=== PATIENT | male | born 1935 | race Asian ===

== ENCOUNTER 2020-01-02 20:32 | Inpatient (IN) | payer OTHER, SELFPAY ==
[~2020-01-02] VITALS: Ht 175.3 cm; Wt 63.0 kg
--- NOTE | 2020-01-02 20:32 | NUR ---
PT LEXI ALS. TAKEN TO BED 10
[2020-01-02 20:44] VITALS: BP 126/83
--- NOTE | 2020-01-02 20:45 | NUR ---
84 y/o male biba from psychiatric for c/o fever and decreased oxygen saturation. skin hot, diaphoretic. Temperature 103.4F O2 85% on 15 non rebreather mask. GCS 7. lungs sounds rhonchi. sinus tachycardiac on monitor. L wrist iv 20g, intact, patent, good blood return. skin intact. generalized weakness. no edma noted. cap refill <3 seconds. patient positioned for comfort, hob elevated, bedrails up x2, bed down, ermd made aware. aware of pt status. pmhx: cerebral infacrtion(r side), htn, hld, dementia, osteoporosis nka Addendum: 01/02/20 at 2214 by [email or web address] COVID POSITIVE
--- NOTE | 2020-01-02 20:54 | NUR ---
Carlos lyle in [facility] - 01/02/20 at 2108 by MICHAEL X-Ray at bedside.
[2020-01-02 20:58] VITALS: BP 121/76
[2020-01-02 21:22] LABS: APPEARANCE,URINE SL CLOUDY (CLEAR); BILIRUBIN,URINE 1+ (NEGATIVE); BLOOD, URINE 2+ (NEGATIVE); COLOR,URINE DARK YELLOW (YELLOW); LEUKOCYTE ESTERASE ,URINE NEGATIVE (NEGATIVE); NITRITE, URINE NEGATIVE (NEGATIVE); UGLUCOSE NEGATIVE (NEGATIVE)
[2020-01-02 21:28] LABS: PROTHROMBIN TIME 10.3 secs (10.8-13.4)
[2020-01-02 21:30] LABS: ALBUMIN 3.3 g/dL (3.4-5.0); ANION GAP 18.8 (8-16); ASPARTATE AMINOTRANSFERASE 64 U/L (15-37); CARBON DIOXIDE 25.1 mmol/L (21-32); CHLORIDE 110 mmol/L (98-107); CREATININE 1.5 mg/dL (0.6-1.3); GLUCOSE 180 mg/dL (74-106); POTASSIUM 3.9 mmol/L (3.5-5.1); SODIUM SERUM 150 mmol/L (136-145); TOTAL BILIRUBIN 0.6 mg/dL (0.0-1.0); UREA NITROGEN, BLOOD 37 mg/dL (7-18)
[2020-01-02 21:38] LABS: RSV NEGATIVE (NEGATIVE)
[2020-01-02 21:38] LABS: BASOPHILS % (AUTO) 0.1 % (0.0-2.0); HEMATOCRIT 52.4 % (36-52); LYMPHOCYTES # (AUTO) 0.6 K/uL (2.0-11.5); LYMPHOCYTES % (AUTO) 8.8 % (20.5-51.1); MEAN CORPUSCULAR HEMOGLOBIN 31 pg (27-31); MEAN CORPUSCULAR HGB CONC 33 g/dL (33-37); MEAN CORPUSCULAR VOLUME 96.3 fL (80-94); MONOCYTES # (AUTO) 0.6 K/uL (0.8-1.0); MONOCYTES % (AUTO) 9.2 % (1.7-9.3); NEUTROPHILS # (AUTO) 5.4 K/uL (1.8-7.7); NEUTROPHILS % (AUTO) 81.9 % (42.2-75.2); PLATELET COUNT (AUTO) 201 K/uL (140-450); RED BLOOD CELL COUNT(AUTO) 5.44 MIL/uL (4.20-6.10); RED CELL DISTRIBUTION WIDTH 14.4 % (11.6-13.7); WHITE BLOOD COUNT (AUTO) 6.6 K/uL (4.8-10.8)
[2020-01-02 21:39] LABS: C-REACTIVE PROTEIN QUANT 11.3 mg/dL (0.0-0.9)
[2020-01-02] MEDS ORDERED: ATOR10TA PO (21:43)
[2020-01-02] MEDS ORDERED: ASPI-1822 PO (21:43)
[2020-01-02] MEDS ORDERED: AMLO5TAB PO (21:43)
[2020-01-02] MEDS ORDERED: MULT267T PO (21:43)
[2020-01-02] MEDS ORDERED: ZINC220T4 PO (21:43)
[2020-01-02] MEDS ORDERED: VITA-16 PO (21:43)
[2020-01-02] MEDS ORDERED: OMEG1CAP26 PO (21:43)
[2020-01-02] MEDS ORDERED: NUTR887L4 PO (21:43)
[2020-01-02] MEDS ORDERED: [UNRECOGNIZED DRUG - CODE] PO (21:43)
[2020-01-02] MEDS ORDERED: NACL 0.9% 2,000 ML IV ONE (21:45)
[2020-01-02] MEDS ORDERED: PIPERACILLIN/TAZOBACTAM 3.375 GM in DEXTROSE 5% 50 ML IV ONE (21:45)
[2020-01-02] MEDS ORDERED: PIPERACILLIN/TAZOBACTAM 3.375 GM VIAL IV ONE (21:49)
[2020-01-02 22:05] LABS: CREATINE KINASE MB 0.2 ng/mL (0-3.6)
[2020-01-02] MEDS ORDERED: ZOLPIDEM 5 MG TAB PO PRN (22:10)
[2020-01-02] MEDS ORDERED: ACETAMINOPHEN 325 MG TAB PO PRN (22:10)
[2020-01-02] MEDS ORDERED: POTASSIUM CHLORIDE 40 MEQ, LIDOCAINE MPF 1% 25 MG in NACL 0.9% 250 ML IV PRN (22:10)
[2020-01-02] MEDS ORDERED: HYDROcodone/APAP 7.5/325 MG 1 TAB PO PRN (22:10)
[2020-01-02] MEDS ORDERED: DOCUSATE SODIUM 100 MG GELCAP PO PRN (22:10)
[2020-01-02] MEDS ORDERED: guaiFENesin DM 200/20 MG-10 ML 10 ML UDC PO PRN (22:10)
[2020-01-02] MEDS ORDERED: ONDANSETRON 4 MG/2 ML VIAL IM/IVP PRN (22:10)
[2020-01-02 22:12] LABS: URINE AMORPHOUS URATE 2+ /HPF (None Seen)
[2020-01-02 22:13] LABS: COARSE GRANULAR CASTS,URINE 0-10 /LPF (None Seen)
[2020-01-02] MEDS ORDERED: ALBUTEROL HFA MDI 90 MCG/ACTUATION 8 GM INH PRN (22:20)
[2020-01-02] MEDS ORDERED: ALBUTEROL SULFATE/IPRATROPIU 3 ML SOL IH PRN (22:20)
--- NOTE | 2020-01-02 22:30 | NUR ---
COVID AND BEATRIZ SWABS DONE AND SENT TO LAB
--- NOTE | 2020-01-02 22:50 | NUR ---
Patient will be admitted to care of JES CHING. Admited to TELEMETRY. Will go to room 118. Belongings list completed. Report to REMIGIO PHILLIPS.
[2020-01-02 22:51] LABS: CHOL/HDL RATIO 4.1 (1-4.5); FREE T4 (FREE THYROXINE) 1.16 ng/dL (0.76-1.46); MAGNESIUM 2.3 mg/dL (1.8-2.4); THYROID STIMULATING HORMONE 0.39 uIU/mL (0.34-3.74)
[2020-01-02] MEDS: DEXT 5% /NACL 0.9% 1,000 ML IV SCH (23:00)
--- NOTE | 2020-01-02 23:00 | NUR ---
PT ADMITTED TO THE UNIT FOR ED. PATIENT AWAKE BUT LETHARGIC. PT UNABLE TO VERBALIZE UNDERSTANDING OR MAKE NEEDS KNOWN. PT ON 15L O2 VIA NRB O2 SAT 93% AT THIS TIME. NO SOB OR S/S OF DISTRESS NOTED. PT PLACED ON TELE MONITORING. BED LOWERED WITH CALL LIGHT WITHIN REACH
--- NOTE | 2020-01-02 23:19 | NUR ---
PT TAKEN OFF BIPAP AND PLACED ON 100% NRB. VITAL SIGNS STABLE. NO RESPIRATORY DISTRESS NOTED. JACQUELINE FABIAN AT BEDSIDE. WILL CONT TO MONITOR
[2020-01-03 00:08] VITALS: BP 127/80
--- NOTE | 2020-01-03 00:49 | NUR ---
INFORMED DR SHORE ABOUT REPEAT LACTIC ACID OF 4.2. NO NEW ORDERS AT THIS TIME
[2020-01-03] MEDS: ALBUTEROL SULFATE/IPRATROPIU 3 ML SOL IH SCH ×4 (01:00→19:00)
--- NOTE | 2020-01-03 02:49 | NUR ---
PT ASLEEP IN BED. NO S/S OF DISTRESS NOTED AT THIS TIME
[2020-01-03 04:10] VITALS: BP 121/71
[2020-01-03] MEDS ORDERED: PIPERACILLIN/TAZOBACTAM 3.375 GM VIAL IV ONE (05:21)
[2020-01-03] MEDS: PIPERACILLIN/TAZOBACTAM 3.375 GM in DEXTROSE 5% 50 ML IV SCH ×3 (05:53→21:13)
--- NOTE | 2020-01-03 05:57 | NUR ---
ORAL CARE DONE. PT TURNED AND REPOSITIONED FOR COMFORT
--- NOTE | 2020-01-03 06:55 | NUR ---
PATIENT HAS BEEN SCREENED AND CATEGORIZED HIGH NUTRITION RISK. PATIENT WILL BE SEEN WITHIN 1-2 DAYS OF ADMISSION. 01/04/20-01/06/08 JESSE HUMPHRIES MS, RDN
[2020-01-03 07:28] LABS: ALBUMIN 2.5 g/dL (3.4-5.0); ANION GAP 12.9 (8-16); ASPARTATE AMINOTRANSFERASE 65 U/L (15-37); CARBON DIOXIDE 24.8 mmol/L (21-32); CHLORIDE 116 mmol/L (98-107); CREATININE 1.4 mg/dL (0.6-1.3); GLUCOSE 228 mg/dL (74-106); POTASSIUM 3.7 mmol/L (3.5-5.1); SODIUM SERUM 150 mmol/L (136-145); TOTAL BILIRUBIN 0.6 mg/dL (0.0-1.0); UREA NITROGEN, BLOOD 28 mg/dL (7-18)
[2020-01-03 07:31] LABS: HEMATOCRIT 48.3 % (36-52); HEMOGLOBIN 15.7 g/dL (12.0-18.0); MEAN CORPUSCULAR HEMOGLOBIN 31 pg (27-31); MEAN CORPUSCULAR HGB CONC 33 g/dL (33-37); MEAN CORPUSCULAR VOLUME 96.2 fL (80-94); PLATELET COUNT (AUTO) 176 K/uL (140-450); RED BLOOD CELL COUNT(AUTO) 5.02 MIL/uL (4.20-6.10); RED CELL DISTRIBUTION WIDTH 14.6 % (11.6-13.7); WHITE BLOOD COUNT (AUTO) 7.2 K/uL (4.8-10.8)
--- NOTE | 2020-01-03 07:33 | NUR ---
PT REPORT GIVEN TO AM NURSE. PT ENDORSED IN STABLE CONDITION
--- NOTE | 2020-01-03 07:34 | NUR ---
RECEIVED REPORT FROM FACILITY MECHANIC NURSE. PATIENT LYING DOWN IN BED SLEEPING, LETHARGIC, WITHDRAWS TO PAIN. RESPIRATIONS EVEN, DIMINISHED, ON NON-BREATHER WITH O2 SAT AT 99%, WILL TITRATE OXYGEN DOWN. NOTIFIED RT, RT TO COME SEE PATIENT. SKIN COLOR APPROPRIATE TO ETHNICITY, WARM TO TOUCH. SKIN INTACT. IV SITES INTACT, PATENT, AND INFUSING IVF PER MD ORDERS. REVIEWED PLAN OF CARE WITH PATIENT. REINFORCEMENT NEEDED. SAFETY MEASURES IN PLACE, CALL LIGHT WITHIN REACH. WILL CONTINUE TO MONITOR.
--- NOTE | 2020-01-03 07:48 | NUR ---
SATURATION 100% ON SUPPLEMENTAL OXYGEN AT 15 LPM VIA NON REBREATHER POST HHN THERAPY TITRATED OXYGEN DEVICE TO A PARTIAL REBREATHER NNAMDI/RN NOTIFIED BIPAP TO MASK AT BEDSIDE
[2020-01-03 07:57] LABS: LYMPHOCYTES % (MANUAL) 8 % (20-46); MONOCYTES % (MANUAL) 5 % (5-12)
[2020-01-03 08:00] VITALS: BP 135/66
[2020-01-03] MEDS: DEXT 5% /NACL 0.9% 1,000 ML IV SCH ×3 (08:50→22:44)
[2020-01-03] MEDS: DEXAMETHASONE 4 MG TAB PO SCH (08:58)
[2020-01-03] MEDS: ASCORBIC ACID 500 MG TAB PO SCH (08:58)
[2020-01-03] MEDS: PANTOPRAZOLE 40 MG TABEC PO SCH (08:58)
[2020-01-03] MEDS: ZINC SULF 220 MG CAP PO SCH (08:58)
--- NOTE | 2020-01-03 08:58 | NUR ---
PATIENT LYING DOWN IN BED, LETHARGIC, UNABLE TO FOLLOW COMMANDS, WITHDRAWS TO PAIN. SCHEDULED HEPARIN SUBQ GIVEN. ORAL MEDICATIONS NOT GIVEN AT THIS TIME DUE TO PATIENT LETHARGIC. WILL CONTINUE TO MONITOR.
[2020-01-03] MEDS ORDERED: HEPARIN PER PHARMACY MC PRN (09:50)
[2020-01-03] MEDS ORDERED: hePARIN / DEXT 5% PREMIX 250 ML IV SCH (09:50)
[2020-01-03] MEDS: hePARIN / DEXT 5% PREMIX 250 ML IV SCH ×2 (10:58→21:33)
--- NOTE | 2020-01-03 11:00 | NUR ---
HEPARIN DRIP STARTED PER PROTOCOL. WILL CONTINUE TO MONITOR.
[2020-01-03 12:00] VITALS: BP 130/67
--- NOTE | 2020-01-03 13:11 | NUR ---
SCHEDULED MEDICATIONS DUE GIVEN. WILL CONTINUE TO MONITOR.
--- NOTE | 2020-01-03 13:53 | NUR ---
SATURATION 99% ON SUPPLEMENTAL OXYGEN AT 15 LPM VIA PARTIAL REBREATHER POST HHN THERAPY TITRATED OXYGEN DEVICE TO AN OXYMIZER AT 4 LPM SATURATION 97% AFTER 2 MINUTES GANG LEADER TO MONITOR NNAMDI/JACQUELINE NOTIFIED
--- NOTE | 2020-01-03 14:25 | NUR ---
ASSISTED BAG BUILDER IN CLEANING AND REPOSITIONING PATIENT. NO BM YET FOR CDIFF COLLECTION. WILL CONTINUE TO MONITOR.
[2020-01-03 16:00] VITALS: BP 108/54
--- NOTE | 2020-01-03 18:45 | NUR ---
PTT>150. PER HEP DRIP PROTOCOL HOLD FOR 1 HOUR THEN REDUCE BY 200 UNITS/HR. STARTED HOLDING AT THIS TIME. WILL NOTIFY PM SHIFT.
--- NOTE | 2020-01-03 19:27 | NUR ---
GAVE REPORT TO STONE GRADER NURSE FOR CONTINUITY OF CARE. PATIENT IN STABLE CONDITION.
--- NOTE | 2020-01-03 19:30 | NUR ---
RECEIVED BEDSIDE REPORT FROM AM SHIFT RN FOR PT'S CONTINUITY OF CARE. PT IS ASLEEP WITH NO SIGNS OF DISTRESS. PT IS ON MEDICAL INSURANCE CODER, ON 4L O2 VIA OXYMIZER, HAS RIGHT WRIST 20G INFUSING WITH D5 NS AT 100ML/HR AND LEFT WRIST 20G WILL BE INFUSING WITH HEPARIN AT 600U/HR. SAFETY MEASURES IN PLACE, BED IN LOW POSITION, AND CALL LIGHT IS WITHIN REACH. WILL MONITOR PT THROUGHOUT THE SHIFT.
[2020-01-03 20:00] VITALS: BP 106/54
--- NOTE | 2020-01-03 21:15 | NUR ---
ADMINISTERED SCHEDULED MEDICATIONS ORDERED. SPOKE WITH FAMILY MEMBERS ASKING FOR UPDATE, DISCUSSED PLAN OF CARE FOR TONIGHT, FAMILY MEMBERS SUGGESTED TO FEED PT APPLESAUCE. ATTEMPTED TO FEED PT WITH APPLESAUCE, PT UNABLE TO SWALLOW. PT NON-VERBAL BUT PER FAMILY, PT ABLE TO TALK AND ANSWER QUESTIONS HIS BASELINE. WILL CONTINUE TO MONITOR PT.
[2020-01-04] VITALS: BP 107/50
--- NOTE | 2020-01-04 | NUR ---
PT ASLEEP WITH NO SIGNS OF DISTRESS OR DISCOMFORT. TITRATED O2 DOWN TO 3L, PT SATURATING AT 98%. WILL CONTINUE TO MONITOR PT.
[2020-01-04] MEDS: ALBUTEROL SULFATE/IPRATROPIU 3 ML SOL IH SCH ×4 (01:00→19:00)
--- NOTE | 2020-01-04 01:34 | NUR ---
NO TX GIVEN DUE TO COVID PROCEDURE
[2020-01-04] MEDS: HYDRAGUARD CREAM TP SCH ×2 (01:55→13:53)
--- NOTE | 2020-01-04 02:30 | NUR ---
PT ASLEEP WITH NO SIGNS OF DISTRESS. NOTED SOME MUCOUS/SALIVA ON MOUTH, SUCTIONED PT AND PERFORMED ORAL CARE. PT TOLERATED THE ACTIVITY WELL. WILL CONTINUE TO MONITOR THE PT.
[2020-01-04 03:53] LABS: BASOPHILS % (AUTO) 0.1 % (0.0-2.0); HEMATOCRIT 42.6 % (36-52); HEMOGLOBIN 13.7 g/dL (12.0-18.0); LYMPHOCYTES # (AUTO) 0.5 K/uL (2.0-11.5); LYMPHOCYTES % (AUTO) 6.1 % (20.5-51.1); MEAN CORPUSCULAR HEMOGLOBIN 31 pg (27-31); MEAN CORPUSCULAR HGB CONC 32 g/dL (33-37); MEAN CORPUSCULAR VOLUME 96.5 fL (80-94); MONOCYTES # (AUTO) 0.4 K/uL (0.8-1.0); MONOCYTES % (AUTO) 5.1 % (1.7-9.3); NEUTROPHILS # (AUTO) 7.5 K/uL (1.8-7.7); NEUTROPHILS % (AUTO) 88.7 % (42.2-75.2); PLATELET COUNT (AUTO) 146 K/uL (140-450); RED BLOOD CELL COUNT(AUTO) 4.41 MIL/uL (4.20-6.10); RED CELL DISTRIBUTION WIDTH 14.6 % (11.6-13.7); WHITE BLOOD COUNT (AUTO) 8.4 K/uL (4.8-10.8)
[2020-01-04 04:00] VITALS: BP 107/55
[2020-01-04] MEDS: PIPERACILLIN/TAZOBACTAM 3.375 GM in DEXTROSE 5% 50 ML IV SCH ×3 (04:15→21:19)
[2020-01-04 04:19] LABS: ALBUMIN 2.1 g/dL (3.4-5.0); ANION GAP 10.4 (8-16); ASPARTATE AMINOTRANSFERASE 37 U/L (15-37); CHLORIDE 119 mmol/L (98-107); CREATININE 1.2 mg/dL (0.6-1.3); GLUCOSE 140 mg/dL (74-106); POTASSIUM 3.4 mmol/L (3.5-5.1); SODIUM SERUM 154 mmol/L (136-145); TOTAL BILIRUBIN 0.5 mg/dL (0.0-1.0); UREA NITROGEN, BLOOD 22 mg/dL (7-18)
--- NOTE | 2020-01-04 04:30 | NUR ---
VITAL SIGNS CHECKED AND CHARTED. PT CHANGED AND REPOSITIONED. PT TOLERATED ACTIVITY WELL. TITRATED O2 DOWN TO 2L, PT SATURATING AT 96%. WILL CONTINUE TO MONITOR PT.
--- NOTE | 2020-01-04 05:25 | NUR ---
RECEIVED CALL FROM LAB, PTT VALUE >150. WILL PAUSE HEPARIN DRIP FOR AN HOUR AND REDUCE BY 200UNITS/HR UPON RESTART, PER PROTOCOL.
--- NOTE | 2020-01-04 06:29 | NUR ---
REPEAT CXR DONE AT BEDSIDE. REPLACED AND RELOCATED O2 SAT SENSOR, REPLACED OXYMIZER WITH NC AT 2L O2, HEPARIN DRIP RESTARTED AT 400UNITS/HR, WILL REORDER PTT REDRAW FOR 1230.
[2020-01-04] MEDS: hePARIN / DEXT 5% PREMIX 250 ML IV SCH ×3 (06:40→22:54)
--- NOTE | 2020-01-04 06:42 | NUR ---
PT O2 SATURATION AT 92% VIA 2L NC. ORDERED PTT AND MUSIC BOX MECHANIC AWARE. PT ASLEEP WITH NO SIGNS OF DISTRESS. WILL ENDORSE TO AM SHIFT RN FOR PT'S CONTINUITY OF CARE.
--- NOTE | 2020-01-04 07:15 | NUR ---
RECEIVED REPORT FROM RECORDS MANAGEMENT TECHNICIAN NURSE RUBIO FOR CONTINUITY OF CARE. PATIENT IN STABLE CONDITION. RESPIRATIONS EVEN AND UNLABORED, 2L VIA NC. IV INTACT AND PATENT. SAFETY MEASURES IN PLACE. BED IN LOW POSITION. BED ALARM ON. CALL LIGHT WITHIN REACH. WILL CONTINUE TO MONITOR.
--- NOTE | 2020-01-04 07:59 | NUR ---
RECEIVED ON SUPPLEMENTAL OXYGENT AT 2 LPM VIA NC BIPAP TO MASK AT BEDSIDE
[2020-01-04 08:00] VITALS: BP 145/69
[2020-01-04] MEDS: ZINC SULF 220 MG CAP PO SCH ×2 (09:49→21:19)
[2020-01-04] MEDS: PANTOPRAZOLE 40 MG TABEC PO SCH (09:49)
[2020-01-04] MEDS: DEXAMETHASONE 4 MG TAB PO SCH (09:50)
[2020-01-04] MEDS: ASCORBIC ACID 500 MG TAB PO SCH (09:50)
[2020-01-04] MEDS: NACL 0.45% 1,000 ML IV SCH (09:51)
--- NOTE | 2020-01-04 10:30 | NUR ---
CHANGED LINEN AT THIS TIME. NO BOWEL MOVEMENT AT THIS TIME. PATIENT TOLERATED WELL. RESPIRATIONS EVEN AND UNLABORED. BED IN LOW POSITION. BED ALARM ON. CALL LIGHT WITHIN REACH. WILL CONTINUE TO MONITOR.
[2020-01-04] MEDS ORDERED: CRUSHER, PILL MC ONE (10:49)
[2020-01-04 12:00] VITALS: BP 110/54
--- NOTE | 2020-01-04 13:30 | NUR ---
HOLD HEPARIN DUE TO APTT 86.6. PATIENT IN STABLE CONDITION. NO BLEEDING NOTED.
[2020-01-04] MEDS ORDERED: ALBUTEROL HFA MDI 90 MCG/ACTUATION 8 GM INH PRN (14:20)
--- NOTE | 2020-01-04 15:00 | NUR ---
RESUMED HEPARIN DRIP AT THIS TIME. PATIENT IN STABLE CONDITION. NO BLEEDING NOTED AT THIS TIME.
[2020-01-04 16:00] VITALS: BP 106/52
[2020-01-04 16:51] LABS: ANION GAP 16.7 (8-16); CARBON DIOXIDE 23.3 mmol/L (21-32); CHLORIDE 118 mmol/L (98-107); GLUCOSE 118 mg/dL (74-106); SODIUM SERUM 155 mmol/L (136-145); UREA NITROGEN, BLOOD 22 mg/dL (7-18)
[2020-01-04] MEDS ORDERED: KCL 20 MEQ/WATER INJ PREMIX 200 ML IV SCH (17:50)
--- NOTE | 2020-01-04 19:19 | NUR ---
GAVE REPORT TO INSPECTOR SCALES NURSE AT THIS TIME. PATIENT IN STABLE CONDITION. ENDORSED ORDER FOR PATIENT K 4OMEQ POTASSIUM PER DR. STODDARD. PHARMACY VERIFIED K 20MEQ. NIGHT NURSE NEEDS TO ORDER ANOTHER K 20 MEQ.
--- NOTE | 2020-01-04 19:20 | NUR ---
RECEIVED PATIENT IN STABLE CONDITION FROM AM SHIFT NURSE FOR CONTINUITY OF CARE. TELE PATIENT. RESPIRATIONS EVEN, UNLABORED. CONTINUES ON O2 2L VIA NC, O2SAT 96%. SKIN WARM, DRY. IV SITE NOTED TO RIGHT WRIST 20G PATENT/INTACT, INFUSING FLUIDS WELL. IV SITE NOTED TO LEFT [id number] PATENT/INTACT, INFUSING HEPARIN WELL. NO C/O PAIN. NO S/S ACUTE DISTRESS. ABDOMEN SOFT, NONTENDER, NONDISTENDED. BOWEL SOUNDS ACTIVE X4 QUADRANTS. INCONTINENT OF BOWEL/BLADDER. PLAN OF CARE DISCUSSED WITH PATIENT AND FAMILY. CALL LIGHT WITHIN REACH. SAFETY PRECAUTIONS IN PLACE. ISOLATION PRECAUTIONS OBSERVED BY ALL STAFF.
[2020-01-04 20:00] VITALS: BP 115/61
--- NOTE | 2020-01-04 21:30 | NUR ---
REPOSITIONED PATIENT FOR COMFORT AND TO MAINTAIN SKIN INTEGRITY. DUE MEDS GIVEN. CALL LIGHT WITHIN REACH. SAFETY PRECAUTIONS IN PLACE. ISOLATION PRECAUTIONS OBSERVED BY ALL STAFF.
--- NOTE | 2020-01-04 23:00 | NUR ---
LAB RESULTS FOR APTT OF 44.9 RECEIVED. ADJUSTED HEPARIN PER PROTOCOL.
[2020-01-05] VITALS: BP 154/67
[2020-01-05] MEDS: ALBUTEROL SULFATE/IPRATROPIU 3 ML SOL IH SCH ×3 (01:00→13:00)
[2020-01-05] MEDS: HYDRAGUARD CREAM TP SCH ×2 (01:54→13:08)
--- NOTE | 2020-01-05 01:54 | NUR ---
PATIENT IS ASLEEP. NO S/S ACUTE DISTRESS. CALL LIGHT WITHIN REACH. SAFETY PRECAUTIONS IN PLACE. ISOLATION PRECAUTIONS OBSERVED BY ALL STAFF.
[2020-01-05] MEDS: NACL 0.45% 1,000 ML IV SCH ×3 (02:47→23:00)
--- NOTE | 2020-01-05 03:45 | NUR ---
PATIENT RESTING COMFORTABLY IN BED. FLACC 0. NO S/S ACUTE DISTRESS. CALL LIGHT WITHIN REACH. SAFETY PRECAUTIONS IN PLACE. ISOLATION PRECAUTIONS OBSERVED BY ALL STAFF.
[2020-01-05 04:00] VITALS: BP 152/75
[2020-01-05] MEDS: PIPERACILLIN/TAZOBACTAM 3.375 GM in DEXTROSE 5% 50 ML IV SCH ×3 (04:11→21:17)
[2020-01-05 05:10] LABS: BASOPHILS % (AUTO) 0.5 % (0.0-2.0); EOSINOPHILS # (AUTO) 0.1 K/uL (0-0.4); EOSINOPHILS % (AUTO) 0.8 % (0.0-4.0); HEMATOCRIT 41.4 % (36-52); HEMOGLOBIN 13.4 g/dL (12.0-18.0); LYMPHOCYTES # (AUTO) 0.2 K/uL (2.0-11.5); LYMPHOCYTES % (AUTO) 2.7 % (20.5-51.1); MEAN CORPUSCULAR HEMOGLOBIN 31 pg (27-31); MEAN CORPUSCULAR HGB CONC 33 g/dL (33-37); MEAN CORPUSCULAR VOLUME 95.3 fL (80-94); MONOCYTES # (AUTO) 0.2 K/uL (0.8-1.0); MONOCYTES % (AUTO) 2.6 % (1.7-9.3); NEUTROPHILS # (AUTO) 8.4 K/uL (1.8-7.7); NEUTROPHILS % (AUTO) 93.4 % (42.2-75.2); PLATELET COUNT (AUTO) 173 K/uL (140-450); RED BLOOD CELL COUNT(AUTO) 4.34 MIL/uL (4.20-6.10); RED CELL DISTRIBUTION WIDTH 14.4 % (11.6-13.7)
--- NOTE | 2020-01-05 05:21 | NUR ---
INCONTINENT CARE RENDERED WITH POLICY LOAN CALCULATOR AT BEDSIDE. DUE MEDS GIVEN. FLACC 0. NO S/S ACUTE DISTRESS. CALL LIGHT WITHIN REACH. SAFETY PRECAUTIONS IN PLACE. ISOLATION PRECAUTIONS OBSERVED BY ALL STAFF.
[2020-01-05 05:38] LABS: MAGNESIUM 2.3 mg/dL (1.8-2.4); PHOSPHORUS 1.7 mg/dL (2.5-4.9)
[2020-01-05 05:41] LABS: ALBUMIN 2.1 g/dL (3.4-5.0); ANION GAP 12.3 (8-16); ASPARTATE AMINOTRANSFERASE 79 U/L (15-37); CHLORIDE 119 mmol/L (98-107); GLUCOSE 119 mg/dL (74-106); POTASSIUM 3.3 mmol/L (3.5-5.1); SODIUM SERUM 153 mmol/L (136-145); TOTAL BILIRUBIN 0.7 mg/dL (0.0-1.0); UREA NITROGEN, BLOOD 22 mg/dL (7-18)
--- NOTE | 2020-01-05 05:46 | NUR ---
LAB RESULTS FOR APTT OF 63.3 RECEIVED. PER PROTOCOL, NO CHANGE. PATIENT IS RESTING COMFORTABLY. NO S/S BLEEDING NOTED. CALL LIGHT WITHIN REACH. SAFETY PRECAUTIONS IN PLACE. ISOLATION PRECAUTIONS OBSERVED BY ALL STAFF.
[2020-01-05] MEDS ORDERED: KCL 20 MEQ/WATER INJ PREMIX 100 ML IV ONE (06:12)
--- NOTE | 2020-01-05 06:12 | NUR ---
ADMINISTERED POTASSIUM 20MEQ TO COMPLETE ORDER OF POTASSIUM 40MEQ, INFUSING AT 10 ML/HR. VERIFIED WITH CHARGE NURSE YELENA. PATIENT IS AWAKE. FLACC 0. NO S/S ACUTE DISTRESS. CALL LIGHT WITHIN REACH. SAFETY PRECAUTIONS IN PLACE. ISOLATION PRECAUTIONS OBSERVED BY ALL STAFF.
--- NOTE | 2020-01-05 07:25 | NUR ---
RECEIVED PATIENT FROM NIGHT NURSE. PATIENT IN BED AWAKE. RESP EVEN AND UNLABORED ON 2LNC. NO NOTED DISTRESS AT THIS TIME. FLACC-0. HEPARIN CONTINUOUS DRIP NOTED AT 400UNITS/HR, 1/2 NS 60ML/HR ALSO NOTED. SAFETY MEASURES IN PLACE. CALL LIGHT WITHIN REACH. WILL CONTINUE TO MONITOR.
[2020-01-05 08:00] VITALS: BP 134/64
[2020-01-05] MEDS ORDERED: ASCORBIC ACID 500 MG TAB PO SCH (09:00)
[2020-01-05 09:06] LABS: T4 (THYROXINE) 7.3 ug/dL (4.5-12.0)
[2020-01-05] MEDS: VITAMIN D 400 IU TAB PO SCH (09:50)
[2020-01-05] MEDS: DEXAMETHASONE 4 MG TAB PO SCH (09:50)
[2020-01-05] MEDS: PANTOPRAZOLE 40 MG TABEC PO SCH (09:50)
[2020-01-05] MEDS: ASCORBIC ACID 500 MG TAB PO SCH (09:51)
[2020-01-05] MEDS: ZINC SULF 220 MG CAP PO SCH ×2 (09:51→21:18)
--- NOTE | 2020-01-05 10:14 | NUR ---
MORNING ROUTINE MEDICATIONS GIVEN. PATIENT IS VERY DIFFICULT WITH MEDICATIONS ADMINISTRATION. PATIENT REFUSED APPLESAUCE BUT AFTER MANY ATTEMPTS, PATIENT WAS ABLE TO TAKE HIS MEDICATIONS. RESP EVEN AND UNLABORED ON 2L NC, O2SAT 95%. NO NOTED DISTRESS. PATIENT IS ABLE TO MAKE NEEDS KNOWN. ASSISTED MOTORCYCLE REPAIRER TO CHANGE PATIENT. SKIN IS WARM TO TOUCH AND INTACT. SAFETY MEASURES IN PLACE. WILL CONTINUE TO MONITOR.
[2020-01-05 12:00] VITALS: BP 144/63
[2020-01-05] MEDS: hePARIN / DEXT 5% PREMIX 250 ML IV SCH (13:14)
--- NOTE | 2020-01-05 13:15 | NUR ---
APTT RESULT 55.3, HEPARIN DRIP REMAINS THE SAME PER PROTOCOL. NEXT APTT SCHEDULED FOR 01/05 @ 0800.
--- NOTE | 2020-01-05 15:50 | NUR ---
DC PLANNIN YRS OLD MALE PATIENT WAS ADMITTED FROM THE [facility] WITH A DX OF FEVER AND COVID . PT HAS A HX OF HTN, CVA, HLD AND HEMIPARESIS . PER SNF PT WAS TESTED COVID POSITIVE. CXR SHOWED MILD STEAKY PERIHILAR AND BASILAR OPACITIES. COVID TEST POSITIVE. BLOOD AND URINE CULTURE PENDING. STARTED COVID PROTOCOL ,IV ABX WITH ZOSYN. CONSULTED WITH NEPHRO, ID, PULMO AND CARDIO. DC PLAN PER MD'S RECOMMENDATIONS. CM TO FOLLOW Addendum: 01/06/20 at 1109 by Loretta Coon CM DC PLANNING: CALLED PT'S SON [phone] SPOKE WITH PENG DISCUSSED THE REQUEST THAT HE WANTED HIS DAD TO GO BACK TO [facility]. PER PENG HIS DAD WAS THERE AND THEY TRANSFERRED HIM TO THE MEDICAL CENTER (ONE OF SISTER'S FACILITY) BECAUSE OF POSITIVE COVID. PENG WAS ASKING THAT IF IT IS POSSIBLE TO RETURN TO [facility], BECAUSE IT IS CLOSE TO THE FAMILY ,AND TO REPEAT THE COVID TEST FOR THEM TO TAKE HIM HOME. I EXPLAINED THAT PATIENT WAS POSITIVE ON 01/02/20 AND AT LEAST NEEDS TO BE QUARANTINE FOR 14 DAYS AND UPDATED PT'S CLINICAL CONDITIONS. PENG VERBALIZED UNDERSTANDING AND OK TO RETURN TO THE MEDICAL CENTER. CALLED THE MEDICAL CENTER BOTH [facility] AND [facility] ARE ON THE MEETING WILL CALL BACK. CM TO FOLLOW Addendum: 01/06/20 at 1655 by Loretta Coon DC PLANNING; SPOKE WITH THE SON PENG STATED FAMILY DON'T WANT PEG PLACEMENT. WANTED TO TRY WITH HOME FOOD 2ND SWALLOWING EVAL DONE PATIENT ABLE TO SWALLOW PUREE DIET WITH THICKENING LIQUID. PER WARREN [place] TO GO BACK TO THE MEDICAL CENTER AND WILL TRANSFER TO [facility]. PT CAN GO TO ROOM 18 C ARRANGED TRANSPORT WITH [facility] PER [facility] AT THE MEDICAL CENTER WILL PAY FOR TRANSPORT. AUDIO VISUAL FACILITIES ENGINEER TIME 7:15 PM NOTIFIED SVITLANA PHILLIPS
--- NOTE | 2020-01-05 15:53 | NUR ---
01/05/20 RD INITIAL ASSESSMENT COMPLETED PLEASE REFER TO NUTRITION ASSESSMENT UNDER CARE ACTIVITY FOR ESTIMATED NUTRITIONAL NEEDS. 1. CONTINUE PUREE DIET TOLERATED 2. RECOMMEND ENSURE TID 3. ENCOURAGE PO INTAKE 4. RD TO FOLLOW-UP 2-3 DAYS, HIGH RISK VICTORIA GREGORIO, RD
[2020-01-05 16:00] VITALS: BP 136/60
--- NOTE | 2020-01-05 16:20 | NUR ---
PATIENT RESTING IN BED. NO NOTED DISTRESS AT THIS TIME. FLACC-0. RESP EVEN AND UNLABORED ON 2L NC. SAFETY MEASURES IN PLACE. ASSISTED CONTAINER SHOP WELDER CHANGING PATIENT. PATIENT TOLERATED WELL. WILL CONTINUE TO MONITOR.
--- NOTE | 2020-01-05 16:21 | NUR ---
ACCOUNTING RECRUITER NOTE: Patient's Orientation Unable To Assess Information Provided By [facility] Comments SW WAS UNABLE TO MEET PATIENT AT BEDSIDE DUE TO MEDICAL CONDITION. Assembly Line Leader, Realtionship and Phone Number PENG IVERSON [phone] [facility] Power of Bottle Packing Machine Cleaner No Does Patient Have a POLST No Identifying Problems No Social Work Triggers Is A Social Work Consult Needed No Mandate Report Filed No Explanation Of Identifying Problems PATIENT IS AN 84-YEAR-OLD MALE ADMITTED FOR COVID AND FEVER. PATIENT HAS PMHX OF HTN, CVA, AND HLD. Admitted From Detention Facility Detention Facility [facility] Pre-Admission Level Of Functioning Status Total Care Prior Resources/Services Used In Last 12 Months SNF Rehab/Skilled Prior Resources/Service Comments PER MAYRA, PATIENT IS A SNF PATIENT AT [facility] BUT IS AT [facility] SKILLED. Prior DME Wheelchair Patient Had Caregiver No Home Support No Caregiver Issues Financial Issues No Known Financial Issue Referral To The Financial Counselor Needed No Factors/Needs SNF/NH Placement Explanation And Or Other Factors Affecting/Possible DC Needs PER MAYRA, PATIENT IS SKILLED AND ON A BED HOLD. Pt/Rep Participated In Discharge Plan Yes Patient/Family Agress With Discharge Plan Yes Discharge Plan Comments TENTATIVE DISCHARGE PLAN IS FOR PATIENT TO RETURN TO [facility]. DC Plan Status Initiated
[2020-01-05 18:40] LABS: ALBUMIN 1.9 g/dL (3.4-5.0); ANION GAP 13.6 (8-16); ASPARTATE AMINOTRANSFERASE 57 U/L (15-37); CARBON DIOXIDE 22.8 mmol/L (21-32); CHLORIDE 116 mmol/L (98-107); CREATININE 0.7 mg/dL (0.6-1.3); GLUCOSE 132 mg/dL (74-106); POTASSIUM 3.4 mmol/L (3.5-5.1); SODIUM SERUM 149 mmol/L (136-145); TOTAL BILIRUBIN 0.6 mg/dL (0.0-1.0); UREA NITROGEN, BLOOD 20 mg/dL (7-18)
--- NOTE | 2020-01-05 18:50 | NUR ---
ST SARAVANAN AT BEDSIDE. WILL WAIT FOR RECOMMENDATION.
--- NOTE | 2020-01-05 19:00 | NUR ---
RECEIVED REPORT FROM AM SHIFT. PT SEEN AND ASSESSED. PT IS ON 2L NC WITH SPO2 OF 93% AND HR 61. PT IS IN NO APPARENT RESPIRATORY DISTRESS AT THIS TIME. WILL CONTINUE TO MONITOR PT.
--- NOTE | 2020-01-05 19:00 | NUR ---
ENDORSED PATIENT TO NIGHT NURSE. PATIENT IN STABLE CONDITION.
--- NOTE | 2020-01-05 19:25 | NUR ---
RECEIVED REPORT FROM AM RN FOR CONTINUITY OF CARE. PT IS STABLE IN NO DISTRESS. ALL SAFETY MEASURES IN PLACE. WILL CONTINUE WITH POC.
--- NOTE | 2020-01-05 19:47 | NUR ---
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 Pt WAS ABLE TO DEMONSTRATE INCONSISTENT SIPS OF 1/2 TSP OF THIN WATER X6 WITH DELAYED AP TRANSFER AND SPONTANEOUS SWALLOW RESPONSE. LARYNGEAL ELEVATION AND EXCURSION WERE COMPLETE BUT NON-DYNAMIC. Pt DID NOT OPEN MOUTH ON COMMAND OR WITH PRESENTATION OF BOLUS ON TSP. Pt ACCEPTED PUREE X1, BUT DID NOT ATTEMPT TO ORALLY MANIPULATE OR AP TRANSFER BOLUS. ST NEEDED TO REMOVE PUREE BOLUS AND PROVIDE ORAL CARE TO CLEAN ORAL CAVITY. NO OVERT S/S OF ASPIRATION OR PENETRATION WERE INDICATED DURING THE LIMITED TRIALS. HOWEVER, Pt IS AT HIGH RISK FOR ASPIRATION D/T TO SEVERE BOLUS HOLDING OF PUREE, POOR RESPONSE TO BOLUS PRESENTATION, DELAYED SWALLOW WITH THIN BY 1/4 TSP, ABSENT AP TRANSFER AND ABSENT SWALLOW RESPONSE WITH PUREE, AND POOR LEVEL OF ALERTNESS TO TASK. Pt IS UNSAFE FOR PO DIET AT THIS TIME. RECOMMEND: 1. KEEP NPO EXCEPT ORAL GRATIFICATION OF THIN LIQUIDS BY 1/4 TSP, IF Pt IS ABLE TO SIP FROM TSP. DO NOT POUR OR FORCE BOLUS INTO MOUTH. 2. CONSIDER ALTERNATE MEANS OF NUTRITION. 3. ASPIRATION PRECAUTIONS, ORAL CARE. 4. ST FOR SWALLOW TX ORDERED FOR ONGOING DIET ANALYSIS, PO TRIALS, SAFE SWALLOW STRATEGIES, AND Pt/CG EDUCATION. ALFREDO MARTINEZ, MS, CCC-NIGHT SUPERVISOR
[2020-01-05 20:00] VITALS: BP 130/58
--- NOTE | 2020-01-05 21:30 | NUR ---
PT AWAKE, UNABLE TO ASSESS ORIENTATION DUE TO LANGUAGE BARRIER. PT TOLERATED IVPB WITH NO COMPLICATIONS. REMAINS ON O2. IN NO RESPIRATORY DISTRESS. V/S: 96.2, 60, 20, 130/58, 94% ON 2L NC. PT IS CALM WITH RELAXED MUSCLES. CONTINUES TO RECEIVE IVF 1/2NS AT 125ML/HR TO RIGHT WRIST AND HEPARIN 4ML/HR TO LEFT WRIST BOTH IV SITES INTACT AND PATENT AND NO SIGNS OF INFECTION. ALL SAFETY MEASURES IN PLACE. WILL CONTINUE TO CLOSELY MONITOR.
--- NOTE | 2020-01-05 23:55 | NUR ---
PT STABLE, PT IS SINUS AYM GOING DOWN TO THE LOW 40'S HOWEVER WHEN AWOKEN PT'S HR GOES UP TO HIGH 40'S LOW 50'S PT REMAINS AT BASELINE. WILL CONTINUE TO MONITOR. REMAINS AT SPO2 98%ON 2L NC. .
[2020-01-06] VITALS: BP 136/51
[2020-01-06] MEDS: HYDRAGUARD CREAM TP SCH ×2 (01:00→12:54)
--- NOTE | 2020-01-06 02:00 | NUR ---
PT. IS RESTING IN NO DISTRESS. RESPIRATION EVEN AND UNLABORED. SPO2 96% ON 2L NC. ALL SAFETY MEASURES IN PLACE. WILL CONTINUE TO MONITOR.
[2020-01-06 04:00] VITALS: BP 133/50
--- NOTE | 2020-01-06 04:00 | NUR ---
PT LAYING IN BED WITH EYES CLOSED, SLEPT MOST OF THE SHIFT WITH NO ISSUES. IN NO DISTRESS. V/S: 96.9, 53, 16, 133/50, 94% ON 2L NC. RELAXED MUSCLES. ALL SAFETY MEASURES IN PLACE.
[2020-01-06] MEDS: PIPERACILLIN/TAZOBACTAM 3.375 GM in DEXTROSE 5% 50 ML IV SCH ×2 (04:49→12:41)
--- NOTE | 2020-01-06 06:05 | NUR ---
PT RESTING IN BED WITH EYES CLOSED, RESPIRATION EVEN AND UNLABORED. WILL CONTINUE TO MONITOR
--- NOTE | 2020-01-06 07:25 | NUR ---
PT ENDORSED TO AM RN WITH BEDSIDE REPORT FOR CONTINUITY OF CARE. PT IS STABLE
--- NOTE | 2020-01-06 07:30 | NUR ---
RECEIVED PT FROM DIRECTOR OF DIGITAL PLATFORMS NURSEVALENTIN, PT IS AWAKE AND LYING ON THE BED WITH SAFETY AND FALL PRECAUTION IN PLACE, PT IS ON O2 2L NC, WITH IV LINE NOTED ON THE LEFT WRIST G. 20 WITH HEPARIN ON CONTINUOUS DRIP AT 4ML/HR(400UNITS/HR), AND ON THE RT WRIST G. 20 WITH 1/2 NS INFUSING AT 125ML/HR, INTACT, PT IS CONFUSED, REACTS TO STIMULI, NO SIGN OF DISTRESS NOTED AND WILL MONITOR PT.
[2020-01-06 07:53] LABS: HEMATOCRIT 37.1 % (36-52); HEMOGLOBIN 12.3 g/dL (12.0-18.0); MEAN CORPUSCULAR HEMOGLOBIN 31 pg (27-31); MEAN CORPUSCULAR HGB CONC 33 g/dL (33-37); MEAN CORPUSCULAR VOLUME 93.7 fL (80-94); PLATELET COUNT (AUTO) 170 K/uL (140-450); RED BLOOD CELL COUNT(AUTO) 3.96 MIL/uL (4.20-6.10); RED CELL DISTRIBUTION WIDTH 14.2 % (11.6-13.7); WHITE BLOOD COUNT (AUTO) 12.4 K/uL (4.8-10.8)
[2020-01-06 08:00] VITALS: BP 130/51
[2020-01-06 08:35] LABS: ANION GAP 17.6 (8-16); CARBON DIOXIDE 21.7 mmol/L (21-32); CHLORIDE 113 mmol/L (98-107); CREATININE 0.8 mg/dL (0.6-1.3); GLUCOSE 118 mg/dL (74-106); POTASSIUM 3.3 mmol/L (3.5-5.1); SODIUM SERUM 149 mmol/L (136-145); UREA NITROGEN, BLOOD 21 mg/dL (7-18)
[2020-01-06 08:36] LABS: ALBUMIN 1.9 g/dL (3.4-5.0); ASPARTATE AMINOTRANSFERASE 41 U/L (15-37); TOTAL BILIRUBIN 0.7 mg/dL (0.0-1.0)
[2020-01-06 08:37] LABS: LACTATE DEHYDROGENASE 219 U/L (85-227); MAGNESIUM 2.2 mg/dL (1.8-2.4)
[2020-01-06 08:50] LABS: LYMPHOCYTES % (MANUAL) 3 % (20-46); MONOCYTES % (MANUAL) 3 % (5-12)
[2020-01-06] MEDS: ASCORBIC ACID 500 MG TAB PO SCH (09:00)
[2020-01-06] MEDS: VITAMIN D 400 IU TAB PO SCH (09:00)
[2020-01-06] MEDS: PANTOPRAZOLE 40 MG TABEC PO SCH (09:00)
[2020-01-06] MEDS: DEXAMETHASONE 4 MG TAB PO SCH (09:00)
[2020-01-06] MEDS: ZINC SULF 220 MG CAP PO SCH (09:00)
[2020-01-06] MEDS ORDERED: DEXTROSE 5% 1,000 ML IV SCH (09:35)
--- NOTE | 2020-01-06 10:10 | NUR ---
PT IS AWAKE AND WAS PLACED ON UPRIGHT TO EVALUATE SWALLOWING BUT PT REFUSED TO OPEN MOUTH AND UNABLE TO ASSESS, BUT PER SWALLOW EVALUATION LAST NIGHT PT SHOULD BE ON NPO, ORAL INTAKE IF POSSIBLE DUE TO PT UNABLE TO SWALLOW, SCHEDULED AM MEDICATIONS WERE NOT GIVEN, MD INFORMED.
--- NOTE | 2020-01-06 10:40 | NUR ---
DR. VIGIL MADE A TELEPHONE ORDER TO PUT PT ON D5 1/2 NS AT 100ML/HR NOW.
--- NOTE | 2020-01-06 11:40 | NUR ---
LUMBER HACKER, NARENDRA WAS UNABLE TO DRAW BLOOD FROM THE PT FOR THE PTT VALUE, AND SAID THAT HE WILL ASK JUAN ALBERTO TO DRAW THE BLOOD, WILL FOLLOW UP.
[2020-01-06 12:00] VITALS: BP 118/55
[2020-01-06] MEDS ORDERED: DEXT 5% / NACL 0.45% 1,000 ML IV SCH (12:40)
--- NOTE | 2020-01-06 12:41 | NUR ---
PT WAS GIVEN ZOSYN IVPB NOW, PT IS AWAKE AND TALKING TO SELF NOW, NO SIGN OF DISTRESS, WILL MONITOR PT.
--- NOTE | 2020-01-06 12:55 | NUR ---
HYDRAGUARD WAS APPLIED TO PT'S PERINEAL AREA NOW.
--- NOTE | 2020-01-06 13:17 | NUR ---
CALLED LAB AND MADE A FOLLOW UP WITH CUPOLA OPERATOR NARENDRA FOR THE BLOOD DRAW OF PT FOR THE PTT, JUAN ALBERTO WILL FACILITATE THE BLOOD DRAWING, WILL FOLLOW UP.
--- NOTE | 2020-01-06 14:00 | NUR ---
PT WAS UNABLE TO TAKE POTASSIUM SUPPLEMENT BECAUSE PT DOES NOT WANT TO OPEN MOUTH. INFORMED.
--- NOTE | 2020-01-06 15:55 | NUR ---
*ST FOLLOW-UP SWALLOW TX* Cleared with RN, Kailee, for f/u PO trials with EARLY CHILDHOOD SPECIALIST. Pt seen bedside, on 2L O2 nc, O2 sats 96-97% throughout session. Pt willingly opened mouth and accepted 5 tsp of puree solids and took very small sips of nectar thick liquids by 1/3 tsp x2. With initial 4/5 trials of puree, pt had fair manipulation and clearing without overt coughing nor throat clearing. However, with 5th tsp of puree, pt engaged in prolonged bolus holding. With follow-up tsp of puree and nectar thick liquids, pt kept his mouth tightly shut. EARLY CHILDHOOD SPECIALIST used Yankauer to remove the 5th puree bolus trial in mouth. Case d/w pt's RN. P: Rec consider non-oral means of nutrition and medications if aligned with pt/family wishes as pt does not consistently accept PO's offered from Puree/[place] Thick Liquids tray Addendum: 01/06/20 at [address] Amended: Links added.
[2020-01-06 16:00] VITALS: BP 135/43
--- NOTE | 2020-01-06 16:00 | NUR ---
SWALLOW EVALUATION DONE TO PT, PT DOES NOT OPEN MOUTH.
[2020-01-06] MEDS ORDERED: PIPE1SOL IV (17:09)
[2020-01-06] MEDS ORDERED: DEC4 PO (17:13)
[2020-01-06] MEDS ORDERED: LOV40I SUBQ (17:13)
[2020-01-06] MEDS ORDERED: VITC500 PO (17:13)
[2020-01-06] MEDS ORDERED: VITD400 PO (17:13)
[2020-01-06] MEDS ORDERED: ZINC220C28 PO (17:13)
--- NOTE | 2020-01-06 19:15 | NUR ---
CALLED [facility] AND GAVE REPORT TO JACQUELINE SYED REGARDING THE PT, INFORMED ABOUT THE DISCHARGED INSTRUCTIONS, PT WILL BE PLACE IN 18-C AND WILL BE CARD BRUSHER AT 1915 AND JACQUELINE SYED VERBALIZED UNDERSTANDING.
--- NOTE | 2020-01-06 19:36 | NUR ---
[facility] VIA [facility], IV LINES KEPT INTACT FOR IV ANTIBIOTICS, PT IS UNABLE TO COMPREHEND D/T ALOC, SO DISCHARGED INSTRUCTIONS WERE GIVEN TO JACQUELINE SYED. PT IS STABLE AT THIS TIME.
== END 2020-01-06 19:40 | disposition hospice, inpatient (51) | DRG 871 ==
LOC: MED 20:32 → MTU 22:12
PROVIDERS: ADMIT Family Medicine; ATTEND Family Medicine
DX: A41.9 Sepsis, unspecified organism (principal); U07.1 COVID-19; J96.01 Acute respiratory failure with hypoxia; N17.0 Acute kidney failure with tubular necrosis; J12.89 Other viral pneumonia; I21.A1 Myocardial infarction type 2; J15.9 Unspecified bacterial pneumonia; G93.40 Encephalopathy, unspecified; E87.0 Hyperosmolality and hypernatremia; I69.359 Hemiplegia and hemiparesis following cerebral infarction affecting unspecified side; N39.0 Urinary tract infection, site not specified; E44.0 Moderate protein-calorie malnutrition; E78.00 Pure hypercholesterolemia, unspecified; E78.5 Hyperlipidemia, unspecified; F03.90 Unspecified dementia, unspecified severity, without behavioral disturbance, psychotic disturbance, mood disturbance, and anxiety; I10 Essential (primary) hypertension; Z66 Do not resuscitate; E86.0 Dehydration; E87.6 Hypokalemia; Z68.20 Body mass index [BMI] 20.0-20.9, adult; Z79.899 Other long term (current) drug therapy
CPT/HCPCS: 36415; 71045; 80048; 80053; 81001; 82150; 82550; 82553; 82728; 83036; 83605; 83615; 83690; 83735; 83880; 84100; 84436; 84439; 84443; 84479; 84484; 85025; 85379; 85384; 85610; 85651; 85730; 86140; 86886; 86900; 86901; 87040; 87081; 87086; 87420; 87804; 92526; 94640; 96365; 99291; J1644; J2001; J2543; J3480; J7030; J7042; J7060; Q0092; U0003-CS